=== PATIENT | female | born 1955 | race Caucasian/White ===

== ENCOUNTER 2019-08-13 10:15 | Emergency (ER) | payer OTHER, SELFPAY ==
[2019-08-13 10:39] VITALS: BP 144/86; PULSE 111; RESP 20; TEMP 39.2; O2SAT 98
--- NOTE | 2019-08-13 10:41 | ED.GENADULT ---
HPI - General Adult General Chief complaint: Upper Respiratory Infection Stated complaint: fever/marcus/body aches Time Seen by Provider: 08/13/19 10:41 Source: patient Mode of arrival: ambulatory Limitations: no limitations History of Present Illness HPI narrative: 64-year-old female patient presents to the [facility] with complaints of cold symptoms that started yesterday. Patient states she has had fevers, chills, body aches, runny nose. Patient states that she thought it might be some sinuses so she took some [id number] generic antihistamines as well some ibuprofen for the chills. Patient states that she did not get a flu shot this year. Patient denies any chest pain or shortness of breath. Related Data Home Medications Medication Instructions Recorded Confirmed rosuvastatin 5 mg DAILY 08/13/19 08/13/19 Allergies Allergy/AdvReac Type Severity Reaction Status Date / Time No Known Allergies Allergy Unknown Unverified 03/17/07 07:07 Review of Systems Review of Systems: Narrative: CONSTITUTIONAL: Positive fever, body aches, chills, and sweats. EYES: Denies visual changes, redness, or discharge. ENT: Positive rhinorrhea, congestion, denies sore throat, or otalgia. CARDIOVASCULAR: Denies chest pain, palpitations, or edema. RESPIRATORY: Denies cough or dyspnea. GASTROINTESTINAL: Denies abdominal pain, nausea, vomiting, or diarrhea. GENITOURINARY: Denies dysuria or hematuria. SKIN: Denies rash or itching. MUSCULOSKELETAL: Denies back pain, joint pain, or myalgia. NEUROLOGIC: Denies headache, numbness, or weakness. PSYCHIATRIC: Denies anxiety or depression. [facility] Past Medical History Medical History Elevated lipids History of vaginal delivery x 3 Surgical History Surgical History History of ankle surgery History of tubal ligation History of vaginal hysterectomy Family History Family History Father Cerebrovascular accident Grandparent Diabetes mellitus Social History Social History Smoking status: Former smoker Gender identity (if verbalized by the patient): Female Comments At the time of my signature I agree with nursing past medical history, surgical, social, and family history. There is no relevant family history pertinent to the presenting complaint. Exam Narrative: Exam Narrative: GENERAL: ill-appearing, well-nourished, and in no acute distress. HEAD: Normocephalic, atraumatic. EYES: PERRLA and EOMI. ENT: Nares with erythema and edema noted bilaterally, no rhinorrhea or epistaxis. Mucous membranes moist. Posterior pharynx with no erythema, tonsillar margin, exudates or lesions present. Bilateral TMs are clear with no erythema or foreign bodies in the canal. NECK: Supple. No lymphadenopathy CHEST: Clear to auscultation. No respiratory distress. HEART: Regular rate and rhythm. No murmur heard. Normal peripheral pulses. ABDOMEN: Soft, nontender, nondistended, normal active bowel sounds. EXTREMITIES: Normal range of motion. No edema. SKIN: Warm, dry, no rash. NEURO: No focal deficits. Alert and oriented x3. Course Vital Signs Vital signs: Vital Signs Temperature 39.2 C H 08/13/19 10:39 Pulse Rate 111 H 08/13/19 10:39 Respiratory Rate 20 08/13/19 10:39 Blood Pressure 144/86 H 08/13/19 10:39 Pulse Oximetry 98 08/13/19 10:39 Temperature 39.2 C H 08/13/19 10:39 Pulse Rate 111 H 08/13/19 10:39 Respiratory Rate 20 08/13/19 10:39 Blood Pressure 144/86 H 08/13/19 10:39 Pulse Oximetry 98 08/13/19 10:39 Vital signs reviewed. The patient has been informed that they may have pre-hypertension or Hypertension based on a BP reading in the department. I recommend that the patient call the primary care provider listed on their discharge instructions or a
== END 2019-08-13 11:04 | disposition home or self-care (01) ==
PROVIDERS: Emergency Provider Nurse Practitioner Family
DX: J10.1 Influenza due to other identified influenza virus with other respiratory manifestations (principal)
CPT/HCPCS: 87804; 99212; G0463

== ENCOUNTER 2019-12-19 11:42 | Outpatient (CLI) | payer OTHER, SELFPAY ==
--- NOTE | ~2019-12-19 | XR_ITS ---
XR foot LT min 3V DATE: 12/19/2019 12:19 INDICATION: Left foot injury, pain TECHNIQUE: 4 views COMPARISON: None FINDINGS: There is a linear oblique fracture through the shaft of the distal phalanx of the second di git with up to 2 mm dorsal displacement, proximal 1 mm lateral displacement. There is an intra-articular mildly depressed fracture of the medial aspect of the head of the proxima l phalanx of the second digit of undetermined age, very possibly recent. No other fracture or disloca tion, periosteal reaction or bone destruction. Minimal plantar calcaneal enthesopathy IMPRESSION: Fracture of the distal phalanx of the second digit Minimally depressed fracture of the medial aspect of the head of the proximal phalanx of the second d igit, of uncertain age Reviewed, dictated and finalized at location A. IMPRESSION: Fracture of the distal phalanx of the second digit Minimally depressed fracture of the medial aspect of the head of the proximal p halanx of the second digit, of uncertain age
== END 2019-12-19 11:43 | disposition home or self-care (01) ==
PROVIDERS: PCP Family Medicine; Visit Provider Family Medicine
DX: S92.532A Displaced fracture of distal phalanx of left lesser toe(s), initial encounter for closed fracture (principal); X58.XXXA Exposure to other specified factors, initial encounter
CPT/HCPCS: 73630

== ENCOUNTER 2020-02-27 17:34 | Outpatient (CLI) | payer OTHER, SELFPAY ==
--- NOTE | ~2020-02-27 | MM_ITS ---
EXAMINATION: MM screening [facility] BI w santana HISTORY: Screening mammogram TECHNIQUE: Craniocaudal and mediolateral oblique 3-D tomosynthesis images were obtained and synthetic 2-D images were generated. CAD analysis was submitted and interpreted. COMPARISON: 02/23/2019, 06/05/2017, 05/28/2016 bilateral digital screening mammogram examinations BREAST PARENCHYMAL COMPOSITION: There are scattered areas of fibroglandular density. FINDINGS: There is no evidence of suspicious mass, calcification, or architectural distortion to sugg est malignancy in either breast. There has been no suspicious interval change. IMPRESSION: 1. No mammographic evidence of malignancy. 2. Recommend routine screening mammography in one year. BI-RADS Category 1: Negative Reviewed, dictated and finalized at location A.
== END 2020-02-27 17:35 | disposition home or self-care (01) ==
LOC: ANHIMG 17:36
PROVIDERS: PCP Family Medicine; Visit Provider Obstetrics & Gynecology
DX: Z12.31 Encounter for screening mammogram for malignant neoplasm of breast (principal)
CPT/HCPCS: 77063; 77067

== ENCOUNTER 2021-03-04 17:17 | Outpatient (CLI) | payer MEDICARE, SELFPAY ==
--- NOTE | ~2021-03-04 | MM_ITS ---
EXAMINATION: MM screening [facility] BI w santana HISTORY: Screening TECHNIQUE: Craniocaudal and mediolateral oblique 3-D tomosynthesis images were obtained and synthetic 2-D images were generated. CAD analysis was submitted and interpreted. COMPARISON: No prior mammogram is available for comparison at this institution. BREAST PARENCHYMAL COMPOSITION: There are scattered areas of fibroglandular density. FINDINGS: There are developing asymmetries lateral aspect of the right breast on CC view. Left breast is stable without evidence for malignancy. IMPRESSION: 1. Right breast asymmetries. 2. Additional mammographic views and possible breast ultrasound are recommended. BI-RADS Category 0: Incomplete: Needs additional imaging evaluation. Reviewed, dictated and finalized at location A. IMPRESSION: 1. Right breast asymmetries. 2. Additional mammographic views and possible breast ultrasound are recommended . BI-RADS Category 0: Incomplete: Needs additional imaging evaluation.
== END 2021-03-04 17:18 | disposition home or self-care (01) ==
LOC: ANHIMG 17:20
PROVIDERS: PCP Family Medicine; Visit Provider Obstetrics & Gynecology
DX: Z12.31 Encounter for screening mammogram for malignant neoplasm of breast (principal); R92.8 Other abnormal and inconclusive findings on diagnostic imaging of breast
CPT/HCPCS: 77063; 77067

== ENCOUNTER 2021-03-25 13:29 | Outpatient (CLI) | payer MEDICARE, SELFPAY ==
--- NOTE | ~2021-03-25 | MMUS_ITS ---
CORRECTED REPORT Santana added. 03/28/2021 EXAMINATION: MM diagnostic [facility] BI w santana, US breast RT complete HISTORY: Right breast asymmetries reported on 03/04/2021 screening mammogram examinations TECHNIQUE: Additional 3-D tomosynthesis images of the right breast were performed and synthetic 2-D images were generated. CAD analysis was submitted and interpreted. High resolution complete right breast ultrasound including all 4 quadrants and subareolar area was performed. COMPARISON: 03/04/2021 bilateral digital screening mammogram FINDINGS: MAMMOGRAPHIC FINDINGS: There is mildly nodular fibroglandular stroma throughout the right breast. No suspicious mass lesion, architectural distortion or any malignant calcification, skin thickening or retraction is detected. ULTRASOUND: 12:00 1 cm from nipple: Parallel circumscribed 2 x 5 mm cyst with through transmission. No suspicious mass or shadowing of the right breast is detected. IMPRESSION: 1. Benign findings; no mammographic evidence of malignancy 2. Routine annual mammographic screening is recommended BI-RADS Category 2: Benign finding(s). Reviewed, dictated and finalized at location A. MTDD IMPRESSION: 1. Benign findings; no mammographic evidence of malignancy 2. Routine annual mammographic screening is recommended BI-RADS Category 2: Benign finding(s).
== END 2021-03-25 13:30 | disposition home or self-care (01) ==
PROVIDERS: PCP Family Medicine; Visit Provider Obstetrics & Gynecology
DX: R92.8 Other abnormal and inconclusive findings on diagnostic imaging of breast (principal)
CPT/HCPCS: 76641; 77062; 77066; G0279

== ENCOUNTER → 2021-05-19 03:04 | Outpatient (CLI) | payer MEDICARE, SELFPAY ==
[2021-05-19 19:24] LABS: SARS-CoV-2 RNA PCR Negative
== END ==
PROVIDERS: PCP Family Medicine; Visit Provider Internal Medicine Gastroenterology
DX: Z01.812 Encounter for preprocedural laboratory examination (principal); Z20.822 Contact with and (suspected) exposure to COVID-19
CPT/HCPCS: C9803; U0003; U0005

== ENCOUNTER 2021-05-22 02:20 | Day surgery (SDC) | payer MEDICARE, SELFPAY ==
[2021-05-09 14:23] VITALS: BMI 26.8
--- NOTE | 2021-05-22 07:34 | WPDANESEPPF ---
Anes - Initial Pre Proc Eval Procedure: Operation Date: 05/22/21 08:30 Proposed Procedures p Screening Colonoscopy - Royce Magana MD Date/Time: 05/22/21 07:34 Surgeon: Royce Magana MD Pre Op Diagnosis: hx of colon polyps Patient Data Age: 66 Gender: F Height: 1.73 m Weight: 80 kg Allergies Allergy/AdvReac Type Severity Reaction Status Date / Time Sulfa (Sulfonamide Allergy Mild Flushing Verified 05/22/21 07:46 Antibiotics) Home Medications Medication Instructions Recorded Confirmed Type multivitamin 1 tablet PO DAILY 02/06/21 05/09/21 History zinc 50 mg tablet 50 mg PO DAILY 02/06/21 05/09/21 History alendronate 70 mg tablet 70 mg PO WEEKLY #12 tablet 02/21/21 05/09/21 Rx rosuvastatin 5 mg tablet 5 mg PO DAILY #90 tablet 02/21/21 05/09/21 Rx cholecalciferol (vitamin D3) 125 mcg PO DAILY 05/09/21 05/09/21 History [Vitamin D3] Patient hx anesthesia problems: none Family hx anesthesia problems: none Results Review: All pre-operative results and documents have been reviewed as part of the pre-operative evaluation. [facility] Past Medical History Medical History (Updated 02/21/21 @ 22:41 by Clementina Harkins MD) Anemia Elevated lipids High cholesterol History of ankle fracture History of vaginal delivery x 3 Hot flashes Osteopenia Osteoporosis Surgical History Surgical History History of ankle surgery History of colposcopy History of tubal ligation History of vaginal hysterectomy Family History Family History Father Cerebrovascular accident Grandparent Diabetes mellitus Mother Diabetes mellitus Grandparent Diabetes mellitus Father Cerebrovascular accident Social History Social History Social History: Years smoked: 20 Smoking status: Former smoker Tobacco type: cigarettes Second hand tobacco smoke exposure: No Smoking end date: 06/07/94 Alcohol intake: current Alcohol use details: Occasionally Substance use: never Substance use type: does not use Living arrangements: with family Gender identity (if verbalized by the patient): Female Sexual Orientation (if Verbalized by the Patient): Straight or Heterosexual Anes - Eval Final PreProcedure Day of Procedure 05/22/21 07:34 Patient weight: overweight Heart: regular rate and rhythm Lungs: clear to auscultation and normal air movement Airway: Mallampati scale class II Neurological: alert and oriented Last oral intake: >/= 8 hours ASA classification: II Emergent: no Anesthetic plan: proceed Anesthesia type and monitoring: general GIVS and standard monitoring Results Review: All pre-operative results and documents have been reviewed as part of the pre-operative evaluation. Informed Consent: The patient's anesthetic plan and its attendant risks and benefits were discussed with the patient/family/POA. Questions were solicited and answers provided to the satisfaction of the patient/family/POA.
[2021-05-22 07:47] VITALS: BP 142/92; PULSE 94; RESP 18; TEMP 36.6; O2SAT 98
[2021-05-22] MEDS: LACTATED RINGERS 1,000 ML 150 ML IV CONT (07:57)
--- NOTE | 2021-05-22 08:15 | PM.HPGS ---
History of Present Illness History of Present Illness Consent: Risks, benefits, and alternatives have been discussed and questions answered. Patient agrees to proceed with procedure. Chief complaint: hx of colon polyps Narrative: Mariana Powers is a 66 year old female Referred for colon cancer screening. She has had a polyp removed about 10 years ago Review of Systems Review of Systems: All systems reviewed & are unremarkable except as noted in HPI and below PMFSH Past Medical History Medical History Anemia Elevated lipids High cholesterol History of ankle fracture History of vaginal delivery x 3 Hot flashes Osteopenia Osteoporosis Surgical History Surgical History History of ankle surgery History of colposcopy History of tubal ligation History of vaginal hysterectomy Family History Family History Father Cerebrovascular accident Grandparent Diabetes mellitus Mother Diabetes mellitus Grandparent Diabetes mellitus Father Cerebrovascular accident Social History Social History Social History: Years smoked: 20 Smoking status: Former smoker Tobacco type: cigarettes Second hand tobacco smoke exposure: No Smoking end date: 06/07/94 Alcohol intake: current Alcohol use details: Occasionally Substance use: never Substance use type: does not use Living arrangements: with family Gender identity (if verbalized by the patient): Female Sexual Orientation (if Verbalized by the Patient): Straight or Heterosexual Meds Home Medications and Allergies Home Medications Medication Instructions Recorded Confirmed Type multivitamin 1 tablet PO DAILY 02/06/21 05/22/21 History zinc 50 mg tablet 50 mg PO DAILY 02/06/21 05/22/21 History alendronate 70 mg tablet 70 mg PO WEEKLY #12 tablet 02/21/21 05/22/21 Rx rosuvastatin 5 mg tablet 5 mg PO DAILY #90 tablet 02/21/21 05/22/21 Rx cholecalciferol (vitamin D3) 125 mcg PO DAILY 05/09/21 05/22/21 History [Vitamin D3] Allergies Allergy/AdvReac Type Severity Reaction Status Date / Time Sulfa (Sulfonamide Allergy Mild Flushing Verified 05/22/21 07:46 Antibiotics) Vital Signs Vital Signs - 24 hr 05/22/21 07:47 Temperature 36.6 C Pulse Rate 94 Respiratory Rate 18 Blood Pressure 142/92 H Pulse Oximetry 98 Exam Const: General: alert Orientation/consciousness: patient oriented x3 Resp: Auscultation: clear to auscultation bilaterally Cardio: Rhythm: regular rhythm GI: GI Palp: Yes Soft to palpation and No Tenderness to palpation present (GI) Neuro: General: patient oriented x3 Assessment and Plan Assessment and plan (1) Colon cancer screening: Code(s): Z12.11 - Encounter for screening for malignant neoplasm of colon Status: Acute Assessment and Plan: Colonoscopy with possible biopsy or polypectomy or cautery or injection of substances.
[2021-05-22 08:46] VITALS: BP 148/90; PULSE 76; RESP 18; O2SAT 98
[2021-05-22 08:55] VITALS: BP 133/85; PULSE 68; RESP 18; O2SAT 98
[2021-05-22 09:00] VITALS: BP 133/90; PULSE 73; RESP 18; O2SAT 100
== END 2021-05-22 09:13 | disposition home or self-care (01) ==
PROVIDERS: PCP Family Medicine; Visit Provider Internal Medicine Gastroenterology
PROC: 0DJD8ZZ Inspection of Lower Intestinal Tract, Via Natural or Artificial Opening Endoscopic (ICD-10-PCS; CPT 45378; principal; 2021-05-22 08:30)
DX: Z12.11 Encounter for screening for malignant neoplasm of colon (principal); D12.0 Benign neoplasm of cecum; K57.30 Diverticulosis of large intestine without perforation or abscess without bleeding; E78.5 Hyperlipidemia, unspecified; M81.0 Age-related osteoporosis without current pathological fracture; Z87.891 Personal history of nicotine dependence
CPT/HCPCS: 45385; 88305; C9803; J2001; J2704; J7120; U0003; U0005

== ENCOUNTER 2022-05-19 16:47 | Outpatient (CLI) | payer MEDICARE, SELFPAY ==
--- NOTE | ~2022-05-19 | MM_ITS ---
EXAMINATION: MM screening [facility] BI w santana HISTORY: Screening TECHNIQUE: Craniocaudal and mediolateral oblique 3-D tomosynthesis images were obtained and synthetic 2-D images were generated. CAD analysis was submitted and interpreted. COMPARISON: Comparison to multiple prior studies sequentially, with oldest reviewed study dated 05/08. BREAST PARENCHYMAL COMPOSITION: There are scattered areas of fibroglandular density. FINDINGS: There is no evidence of suspicious mass, calcification, or architectural distortion to sugg est malignancy in either breast. There has been no suspicious interval change. IMPRESSION: 1. No mammographic evidence of malignancy. 2. Recommend routine screening mammography in one year. BI-RADS Category 1: Negative Reviewed, dictated and finalized at location B. [employer]
--- NOTE | ~2022-05-19 | DEXA_ITS ---
Bone Density Report Name: EVERARDO TELLO Age: 67 Sex: Female Ethnicity: White Date of : 1955 Indication: postmenopausal; screening for osteoporosis; parental hip fracture; prior fracture; hysterectomy; Referring Provider: DESHAWN BEVERLY Study: Bone densitometry was performed. Exam Date: May 19, 2022 Accession number: [id number] Bone Density: Region BMD T-score Z-score Classification AP Spine(L1-L4) 0.810 -2.2 -0.3 Osteopenia Femoral Neck (Left) 0.701 -1.3 0.2 Osteopenia Total Hip (Left) 0.975 0.3 1.6 Normal Femoral Neck (Right) 0.768 -0.7 0.8 Normal Total Hip (Right) 0.951 0.1 1.4 Normal Total Hip Mean 0.963 0.2 1.5 Normal World Health Organization criteria for BMD impression classify patients as: Normal (T-score at or above -1.0), Osteopenia (T-score between -1.0 and -2.5), or Osteoporosis (T-score at or below -2.5). 10-year Fracture Risk: FRAX not reported because: Treated for osteoporosis Clinical Information Provided by Patient: Has had a low trauma fracture Parent has had a hip fracture Is being treated for osteoporosis Has used the following medications: Fosamax (i.e. alendronate) Has the following medical conditions: Hysterectomy Patient maximum height was 68.5 Menopause Age: 51 Drinks caffeinated beverages Onset of menses at age 14 Number of children 3 Impression: The patient has low bone mass, based on the Total Spine T-score. The patient has risk factors, including: parental hip fracture, previous fracture. Discussion: It is important to ask patients whether they are taking their medications and to encourage continued and appropriate compliance with their osteoporosis therapies to reduce fracture risk. It is also important to review their risk factors and encourage appropriate calcium and vitamin D intakes, exercise, fall prevention and other lifestyle measures. Follow-Up: Consider a repeat BMD and Vertebral Fracture Assessment (VFA) exam in 2 years or sooner if medically necessary, to reassess this patient's status. Reported by: KARINA on 05/19/2022 5:15:00 PM. Reviewed, dictated and finalized at location ADonavan MONTES DE OCA
== END 2022-05-19 16:48 | disposition home or self-care (01) ==
LOC: ANHIMG 16:51
PROVIDERS: PCP Family Medicine; Visit Provider Family Medicine
DX: Z12.31 Encounter for screening mammogram for malignant neoplasm of breast (principal); Z78.0 Asymptomatic menopausal state; M85.89 Other specified disorders of bone density and structure, multiple sites
CPT/HCPCS: 77063; 77067; 77080

== ENCOUNTER 2022-06-29 08:48 | Outpatient (CLI) | payer MEDICARE, SELFPAY ==
[2022-06-29 10:10] LABS: Basophils Absolute Auto 0.1 K/mm3 (0.0-0.1); Eosinophils Absolute Auto 0.2 K/mm3 (0-0.3); Eosinophils Percent Auto 3.4 % (0-4.4); Hematocrit 45.4 % (37.0-47.0); Hemoglobin 14.7 g/dL (12.0-15.0); Immature Granulocyte Absolute 0.02 K/mm3 (0.00-0.031); Immature Granulocyte Percent A 0.3 % (0-0.5); Lymphocytes Absolute Auto 1.46 K/mm3 (0.9-3.2); Lymphocytes Percent Auto 21.7 % (18.3-44.2); Mean Corpuscular HGB Conc 32.4 g/dl (32-36); Mean Corpuscular Hemoglobin 28.9 pg (26-34); Mean Corpuscular Volume 89.2 fl (80-100); Monocytes Absolute Auto 0.6 K/mm3 (0.1-0.6); Monocytes Percent Auto 9.2 % (2.6-8.5); Neutrophils Absolute Auto 4.3 K/mm3 (1.3-6.7); Neutrophils Percent Auto 64.4 % (45.5-73.1); Platelet Count Result 235 k/mm3 (150-375); Red Blood Count 5.09 M/mm3 (4.2-5.4); Red Cell Distribution Width 13.8 % (11.5-14.5); White Blood Count 6.7 K/mm3 (4.5-10.0)
[2022-06-29 10:19] LABS: Hemoglobin A1C 5.6 % (<5.7)
[2022-06-29 10:22] LABS: Alanine Aminotransferase 16 U/L (6-35); Albumin Level 4.9 g/dL (3.5-5.1); Alkaline Phosphatase 48 U/L (38-126); Anion Gap 8 mmol/L (8-16); Aspartate Amino Transferase 33 U/L (14-36); Bilirubin,Total 0.5 mg/dL (0.2-1.3); Blood Urea Nitrogen 17 mg/dL (7-17); Carbon Dioxide 28 mmol/L (22-30); Chloride 103 mmol/L (98-107); Cholesterol 200 mg/dL (0-200); Estimated Glomerular Filt Rate > 60; Glucose 86 mg/dL (65-110); HDL Direct 61 mg/dL; Potassium 3.8 mmol/L (3.4-5.0); Sodium 139 mmol/L (137-145); Triglycerides 126 mg/dL (<150)
[2022-06-29 10:33] LABS: LDL Cholesterol Direct 90 mg/dL
== END 2022-06-29 08:49 | disposition home or self-care (01) ==
LOC: ANHLAB 08:50
PROVIDERS: PCP Family Medicine; Visit Provider Nurse Practitioner Gerontology
DX: E78.5 Hyperlipidemia, unspecified (principal); E11.9 Type 2 diabetes mellitus without complications; I10 Essential (primary) hypertension
CPT/HCPCS: 36415; 80053; 80061; 83036; 85025

== ENCOUNTER 2022-10-05 08:07 | Outpatient (CLI) | payer MEDICARE, SELFPAY ==
[2022-10-05 08:45] LABS: Hemoglobin A1C 5.6 % (<5.7)
== END 2022-10-05 08:08 | disposition home or self-care (01) ==
PROVIDERS: PCP Family Medicine; Visit Provider Nurse Practitioner Gerontology
DX: E11.9 Type 2 diabetes mellitus without complications (principal)
CPT/HCPCS: 36415; 83036

== ENCOUNTER 2023-03-11 08:50 | Outpatient (CLI) | payer MEDICARE, SELFPAY ==
[2023-03-11 09:43] LABS: Basophils Absolute Auto 0.1 K/mm3 (0.0-0.1); Basophils Percent Auto 1.5 % (0.2-1.2); Eosinophils Absolute Auto 0.4 K/mm3 (0-0.3); Eosinophils Percent Auto 5.4 % (0-4.4); Hematocrit 45.7 % (37.0-47.0); Hemoglobin 14.9 g/dL (12.0-15.0); Immature Granulocyte Absolute 0.02 K/mm3 (0.00-0.031); Immature Granulocyte Percent A 0.3 % (0-0.5); Lymphocytes Absolute Auto 1.54 K/mm3 (0.9-3.2); Lymphocytes Percent Auto 23.7 % (18.3-44.2); Mean Corpuscular HGB Conc 32.6 g/dl (32-36); Monocytes Absolute Auto 0.6 K/mm3 (0.1-0.6); Monocytes Percent Auto 9.2 % (2.6-8.5); Neutrophils Absolute Auto 3.9 K/mm3 (1.3-6.7); Neutrophils Percent Auto 59.9 % (45.5-73.1); Platelet Count Result 219 k/mm3 (150-375); Red Blood Count 4.97 M/mm3 (4.2-5.4); Red Cell Distribution Width 13.6 % (11.5-14.5); White Blood Count 6.5 K/mm3 (4.5-10.0)
[2023-03-11 12:01] LABS: Alanine Aminotransferase 13 U/L (6-35); Albumin Level 4.5 g/dL (3.5-5.1); Alkaline Phosphatase 43 U/L (38-126); Anion Gap 7 mmol/L (8-16); Aspartate Amino Transferase 28 U/L (14-36); Bilirubin,Total 0.6 mg/dL (0.2-1.3); Blood Urea Nitrogen 15 mg/dL (7-17); Calcium 9.3 mg/dL (8.4-10.2); Carbon Dioxide 26 mmol/L (22-30); Chloride 104 mmol/L (98-107); Cholesterol 195 mg/dL (0-200); Estimated Glomerular Filt Rate > 60; Glucose 95 mg/dL (65-110); HDL Direct 60 mg/dL; Potassium 3.8 mmol/L (3.4-5.0); Sodium 137 mmol/L (137-145); Triglycerides 149 mg/dL (<150)
[2023-03-11 12:13] LABS: LDL Cholesterol Direct 100 mg/dL
== END 2023-03-11 08:51 | disposition home or self-care (01) ==
PROVIDERS: PCP Family Medicine; Visit Provider Physician Assistant
DX: E78.5 Hyperlipidemia, unspecified (principal); I10 Essential (primary) hypertension; Z13.1 Encounter for screening for diabetes mellitus
CPT/HCPCS: 36415; 80053; 80061; 85025

== ENCOUNTER 2023-06-09 09:01 | Outpatient (CLI) | payer MEDICARE, SELFPAY ==
--- NOTE | ~2023-06-09 | MM_ITS ---
EXAMINATION: MM screening [facility] BI w santana HISTORY: Screening mammogram TECHNIQUE: Craniocaudal and mediolateral oblique 3-D tomosynthesis images were obtained and synthetic 2-D images were generated. CAD analysis was submitted and interpreted. COMPARISON: 05/19/2022, 03/25/2021, 03/04/2021, 02/27/2020 BREAST PARENCHYMAL COMPOSITION: There are scattered areas of fibroglandular density. FINDINGS: A chronic stable asymmetry is present in the middle third of the outer right breast on the craniocaudal view. No suspicious mass, calcification, or architectural distortion are identified in e ither breast to suggest malignancy. There has been no suspicious interval change. IMPRESSION: 1. No mammographic evidence of malignancy. 2. Recommend routine screening mammography in one year. BI-RADS Category 2: Benign finding(s). Reviewed, dictated and finalized at location A. [employer]
== END 2023-06-09 09:02 | disposition home or self-care (01) ==
LOC: ANHIMG 09:04
PROVIDERS: PCP Family Medicine; Visit Provider Obstetrics & Gynecology
DX: Z12.31 Encounter for screening mammogram for malignant neoplasm of breast (principal)
CPT/HCPCS: 77063; 77067

== ENCOUNTER 2023-08-30 08:37 | Outpatient (CLI) | payer MEDICARE, SELFPAY ==
[2023-08-30 09:50] LABS: Cholesterol 192 mg/dL (0-200); HDL Direct 60 mg/dL; Triglycerides 147 mg/dL (<150)
[2023-08-30 10:02] LABS: LDL Cholesterol Direct 107 mg/dL
== END 2023-08-30 08:38 | disposition home or self-care (01) ==
LOC: ANHLAB 08:41
PROVIDERS: PCP Family Medicine; Visit Provider Physician Assistant
DX: E78.5 Hyperlipidemia, unspecified (principal); I10 Essential (primary) hypertension; Z13.1 Encounter for screening for diabetes mellitus; R73.09 Other abnormal glucose
CPT/HCPCS: 36415; 80061; 83036

== ENCOUNTER 2024-06-08 14:21 | Outpatient (CLI) | payer MEDICARE, SELFPAY ==
--- NOTE | ~2024-06-08 | XR_ITS ---
CHEST RADIOGRAPH, PA AND LATERAL CLINICAL HISTORY: R05.9 - Cough, unspecified, CONGESTION X 1 + WEEKS . COMPARISON: 03/11/2007 TECHNIQUE: PA and lateral views of the chest. FINDINGS The cardiomediastinal silhouette is unremarkable. Interval development of left upper lobe nodularity, possibly inspissated bronchial secretions versus varicose bronchiectasis for which cross-sectional imaging (noncontrast enhanced CT examination of the chest) is suggested for further evaluation. Visualized osseous structures and soft tissues are unremarkable. IMPRESSION: Interval development of left upper lobe nodularity, possibly inspissated bronchial secretions versus varicose bronchiectasis for which cross-sectional imaging (noncontrast enhanced CT examination of the chest) is suggested for further evaluation. Reviewed, dictated and finalized at location A. [employer]K [employer]IVER IMPRESSION: Interval development of left upper lobe nodularity, possibly inspissated bronch ial secretions versus varicose bronchiectasis for which cross-sectional imaging (noncontrast enhanced CT examination of the chest) is suggested for further ev aluation.
== END 2024-06-08 14:22 | disposition home or self-care (01) ==
PROVIDERS: PCP Family Medicine; Visit Provider Student in an Organized Health Care Education/Training Program
DX: R91.1 Solitary pulmonary nodule (principal); R05.9 Cough, unspecified
CPT/HCPCS: 71046

== ENCOUNTER 2024-06-20 14:43 | Outpatient (CLI) | payer MEDICARE, SELFPAY ==
--- NOTE | ~2024-06-20 | MM_ITS ---
EXAMINATION: MM screening [facility] BI w santana HISTORY: Screening mammogram TECHNIQUE: Craniocaudal and mediolateral oblique 3-D tomosynthesis images were obtained and synthetic 2-D images were generated. CAD analysis was submitted and interpreted. COMPARISON: 06/09/2023, 05/19/2022, 03/04/2021 BREAST PARENCHYMAL COMPOSITION:Not Dense. There are scattered areas of fibroglandular density. FINDINGS: No suspicious mass, calcification, or architectural distortion are identified in either ella ast to suggest malignancy. There has been no suspicious interval change. IMPRESSION: No mammographic evidence of malignancy. Recommend routine screening mammography in one year. BI-RADS Category 1: Negative Reviewed, dictated and finalized at location . TECH
--- NOTE | ~2024-06-20 | DEXA_ITS ---
Bone Density Report Name: EVERARDO TELLO Age: 69 Sex: Female Ethnicity: White Date of : 1955 Indication: osteopenia; monitoring treatment; parental hip fracture; prior fracture; hysterectomy; Referring Provider: HYUN MEYER Study: Bone densitometry was performed. Exam Date: June 20, 2024 Accession number: [id number] Bone Density: Region BMD T-score Z-score Classification AP Spine(L1-L4) 0.802 -2.2 -0.2 Osteopenia Femoral Neck (Left) 0.710 -1.3 0.4 Osteopenia Total Hip (Left) 1.012 0.6 2.0 Normal Femoral Neck (Right) 0.712 -1.2 0.5 Osteopenia Total Hip (Right) 0.977 0.3 1.7 Normal Total Hip Mean 0.995 0.5 1.9 Normal World Health Organization criteria for BMD impression classify patients as: Normal (T-score at or above -1.0), Osteopenia (T-score between -1.0 and -2.5), or Osteoporosis (T-score at or below -2.5). 10-year Fracture Risk: FRAX not reported because: Treated for osteoporosis Previous Exams: Region Exam Age BMD T-score BMD Change BMD Change Date g/cm2 vs Baseline vs Previous AP Spine (L1-L4) 06/20/2024 69 0.802 -2.2 -0.008 (-1.0%) -0.008 (-1.0%) 05/19/2022 67 0.810 -2.2 0.000 (0.0%)# 0.036 (4.6%)* 06/05/2017 62 0.774 -2.5 -0.036 (-4.4%) -0.009 (-1.1%) 05/27/2015 60 0.783 -2.4 -0.027 (-3.3%) -0.027 (-3.3%) 12/31/2012 57 0.810 -2.2 Total Hip(Left) 06/20/2024 69 1.012 0.6 0.088 (9.5%)* 0.037 (3.8%)# 05/19/2022 67 0.975 0.3 0.051 (5.5%)# 0.037 (4.0%)* 06/05/2017 62 0.938 0.0 0.013 (1.4%)# 0.014 (1.6%) 05/27/2015 60 0.923 -0.2 -0.001 (-0.1%) -0.001 (-0.1%) 12/31/2012 57 0.924 -0.1 Total Hip(Right) 06/20/2024 69 0.977 0.3 0.058 (6.3%)* 0.027 (2.8%)# 05/19/2022 67 0.951 0.1 0.031 (3.4%)# 0.022 (2.3%) 06/05/2017 62 0.929 -0.1 0.009 (1.0%)# 0.031 (3.5%)* 05/27/2015 60 0.898 -0.4 -0.022 (-2.4%) -0.022 (-2.4%) 12/31/2012 57 0.920 -0.2 *Denotes significance at 95% confidence level, LSC for AP Spine = 0.022 g/cm2, LSC for Total Hip = 0.027 g/cm2 # Denotes dissimilar scan types or analysis methods Clinical Information Provided by Patient: Has had a low trauma fracture Parent has had a hip fracture Is being treated for osteoporosis Has used the following medications: Fosamax (i.e. alendronate), Vitamin D, Calcium Has the following medical conditions: Hysterectomy Patient maximum height was 68.5 Menopause Age: 51 Drinks caffeinated beverages Onset of menses at age 14 Number of children 3 Impression: The patient has low bone mass, based on the Total Spine T-score. The patient has risk factors, including: parental hip fracture, previous fracture. No significant bone loss was observed. Discussion: PATIENT UNDER TREATMENT WITH NO SIGNIFICANT BMD LOSS SINCE LAST EXAM. In an untreated patient, BMD typically declines with age. A lack of decline or gain is usually a sign that treatment is efficacious and fracture risk is reduced. It is important to ask patients whether they are taking their medications and to encourage continued and appropriate compliance with their osteoporosis therapies to reduce fracture risk. It is also important to review their risk factors and encourage appropriate calcium and vitamin D intakes, exercise, fall prevention and other lifestyle measures. Follow-Up: Consider a repeat BMD and Vertebral Fracture Assessment (VFA) exam in 2 years or sooner if medically necessary, to reassess this patient's status. Reported by: ISREAL on 06/20/2024 3:11:00 PM. Reviewed, dictated and finalized at location ADonavan MONTES DE OCA
== END 2024-06-20 14:44 | disposition home or self-care (01) ==
PROVIDERS: PCP Family Medicine; Visit Provider Obstetrics & Gynecology
DX: M85.80 Other specified disorders of bone density and structure, unspecified site (principal); Z12.31 Encounter for screening mammogram for malignant neoplasm of breast; Z78.0 Asymptomatic menopausal state
CPT/HCPCS: 77063; 77067; 77080

== ENCOUNTER 2024-09-04 09:05 | Outpatient (CLI) | payer MEDICARE, SELFPAY ==
--- NOTE | ~2024-09-04 | XR_ITS ---
Clinical Indication: Abnormal findings on diagnostic imaging PA and lateral views of the chest: Comparison: 06/08/2024 Findings: Multiple small calcified nodules are again present the left upper lobe. The lungs are other tripathi clear, without evidence of focal consolidation or pleural effusion. Cardiomediastinal silhouett e is within normal limits. Bones and soft tissues are unremarkable. Impression: No acute abnormality. Stable calcified nodules left upper lobe. Reviewed, dictated and finalized at location . Impression: No acute abnormality. Stable calcified nodules left upper lobe.
[2024-09-04 10:12] LABS: Basophils Absolute Auto 0.1 K/mm3 (0.0-0.1); Basophils Percent Auto 1.4 % (0.2-1.2); Eosinophils Absolute Auto 0.3 K/mm3 (0-0.3); Eosinophils Percent Auto 4.2 % (0-4.4); Hematocrit 46.5 % (37.0-47.0); Hemoglobin 15.3 g/dL (12.0-15.0); Immature Granulocyte Absolute 0.03 K/mm3 (0.00-0.031); Immature Granulocyte Percent A 0.5 % (0-0.5); Lymphocytes Absolute Auto 1.49 K/mm3 (0.9-3.2); Lymphocytes Percent Auto 23.2 % (18.3-44.2); Mean Corpuscular HGB Conc 32.9 g/dl (32-36); Mean Corpuscular Hemoglobin 29.6 pg (26-34); Mean Corpuscular Volume 89.9 fl (80-100); Mean Platelet Volume 10.9 fl (7.4-10.4); Monocytes Absolute Auto 0.6 K/mm3 (0.1-0.6); Monocytes Percent Auto 8.7 % (2.6-8.5); Platelet Count Result 220 k/mm3 (150-375); Red Blood Count 5.17 M/mm3 (4.2-5.4); Red Cell Distribution Width 14.6 % (11.5-14.5); White Blood Count 6.4 K/mm3 (4.5-10.0)
[2024-09-04 10:23] LABS: Alanine Aminotransferase 14 U/L (6-35); Albumin Level 4.8 g/dL (3.5-5.1); Alkaline Phosphatase 46 U/L (38-126); Anion Gap 9 mmol/L (4-12); Aspartate Amino Transferase 28 U/L (14-36); Bilirubin,Total 0.5 mg/dL (0.2-1.3); Blood Urea Nitrogen 18 mg/dL (7-17); Calcium 9.6 mg/dL (8.4-10.2); Carbon Dioxide 27 mmol/L (22-30); Chloride 104 mmol/L (98-107); Cholesterol 187 mg/dL (0-200); Estimated Glomerular Filt Rate > 60; Glucose 100 mg/dL (65-110); HDL Direct 69 mg/dL; Potassium 4.4 mmol/L (3.4-5.0); Sodium 140 mmol/L (137-145); Triglycerides 111 mg/dL (<150)
[2024-09-04 10:34] LABS: LDL Cholesterol Direct 86 mg/dL
[2024-09-04 14:28] LABS: Hemoglobin A1C 5.7 % (<5.7)
== END 2024-09-04 09:06 | disposition home or self-care (01) ==
PROVIDERS: PCP Family Medicine; Visit Provider Student in an Organized Health Care Education/Training Program
DX: R93.89 Abnormal findings on diagnostic imaging of other specified body structures (principal); I10 Essential (primary) hypertension; E78.5 Hyperlipidemia, unspecified; R73.01 Impaired fasting glucose; E55.9 Vitamin D deficiency, unspecified
CPT/HCPCS: 36415; 71046; 80053; 80061; 82652; 83036; 85025

== ENCOUNTER 2025-03-19 11:08 | Outpatient (CLI) | payer MEDICARE, SELFPAY ==
--- NOTE | ~2025-03-19 | CT_ITS ---
EXAMINATION:CT chest high resolution wo id DATE: 03/19/2025 11:25 INDICATION: Abnormal findings on diagnostic imaging. TECHNIQUE: Computed tomography (CT) of the chest was performed without intravenous contrast. Automated exposure control and iterative reconstruction technique were employed. The dose-length product (DLP) was 349.84 mGy-cm. COMPARISON: Chest 2 views 09/04/2024 FINDINGS: There is mild scarring in paraspinal right lower lobe. Calcified left lung nodules are consistent with old granulomatous disease. There is bronchiectasis in left upper lobe peripheral to multiple broncholiths. There are a few scattered nodules in the lungs measuring up to 6 mm. No pleural effusion. The heart size is normal. No pericardial effusion. There is a moderate-sized sliding hiatal hernia. There is mild thoracic spondylosis. IMPRESSION: 1. Pulmonary nodules measuring up to 6 mm, probably benign. Consider noncontrast low-dose chest CT in 6-12 months. 2. 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 3. Moderate-sized sliding hiatal hernia. Reviewed, dictated and finalized at location E. IMPRESSION: 1. Pulmonary nodules measuring up to 6 mm, probably benign. Consider noncontras t low-dose chest CT in 6-12 months. 2. 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 3. Moderate-sized sliding hiatal hernia.
== END 2025-03-19 11:09 | disposition home or self-care (01) ==
LOC: MICIMG 11:09
PROVIDERS: PCP Family Medicine; Visit Provider Student in an Organized Health Care Education/Training Program
DX: R93.89 Abnormal findings on diagnostic imaging of other specified body structures (principal); K44.9 Diaphragmatic hernia without obstruction or gangrene; R91.8 Other nonspecific abnormal finding of lung field
CPT/HCPCS: 71250